=== PATIENT | male | born 1950 | race Caucasian/White ===

== ENCOUNTER → 2017-10-09 | Outpatient (CLI) | payer MEDICARE ==
[~2017-10-09] MED LIST: ASPIRIN 325MG325 MG PO; ASPIRIN EC325 MG PO; AZITHROMYCIN250 M1 PO; AZITHROMYCIN250 MG PO; BACLOFEN 10MG T10 MG PO; CIPRO 500MG TA500 MG PO; DUONEB 3 MG/3 ML3 ML IH; GAS-X EXTRA ST125 M1 PO; LISINOPRIL 10MG10 MG PO; MEDROL 4MG. DOSE4 MG PO; OMEPRAZOLE20 MG PO; PANTOPRAZOLE SO40 MG PO; PEPTO-BISMOL262 MG PO; PREDNISONE 20MG20 MG PO; REGLAN10 M1 PO; [UNRECOGNIZED DRUG - REMARK]
--- NOTE | 2017-10-09 15:48 | RADIOLOGY REPORT PS360 ---
HIP RT 2-3V W/PELVIS IF PERFOR HISTORY: RT HIP PAIN ORDERING PHYSICIAN: Gatito Sanchez MD PATIENT AGE: 67 years COMPARISON: None FINDINGS: No fracture or dislocation. No lytic or blastic change. There are mild osteoarthritic changes of the hips. IMPRESSION: Mild osteoarthritis of the hips, no acute finding
== END ==
LOC: RAD 14:09
DX: M25.551 Pain in right hip (principal)